=== PATIENT | male | born 1960 | race Caucasian/White ===

== ENCOUNTER 2016-11-20 07:51 | Emergency (ER) | payer SELFPAY ==
[~2016-11-20] VITALS: Ht 177.8 cm; Wt 54.5 kg
[2016-11-20 07:54] VITALS: Ht 177.8 cm; Wt 54.5 kg
[2016-11-20] MEDS ORDERED: ACETAMINOPHEN 325/HYDROC 7.5 15 ML CUP PO ONE (08:00)
[2016-11-20] MEDS ORDERED: ACETAMINOPHEN 325/HYDROC 7.5 15 ML CUP GTB ONE (08:00)
--- NOTE | 2016-11-20 08:21 | ERD ---
ER Documentation Chief Complaint Date/Time DATE: 11/20/16 TIME: 08:19 Chief Complaint BROUGHT IN VIA EMS FROM SNF DUE TO GROUND LEVEL FALL HPI This is a 56-year-old male who is trach, non-vent dependent who is DNR, comfort measures only. The patient presents after falling out of a bed from approximately 1-1/2 feet off the ground. The patient landed on his left side without loss of consciousness. He is complaining of left shoulder pain and head pain. There is no nausea or vomiting. Remainder of history is limited given limited verbal state. This occurred just prior to arrival. ROS All systems reviewed and are negative except as per history of present illness. Medications Home Meds Active Scripts Hydrocodone Bit-Acetaminophen* (Lortab* Liq) 7.5 Mg-325 Mg/15 Ml Solution, 10 ML G-TUBE QID Y for PAIN for 7 Days, ML Prov:AKILAH SYLVESTER MD 11/20/16 Allergies Allergies: Coded Allergies: Penicillins (Verified Allergy, Unknown, 11/20/16) PMhx/Soc History of Surgery: Yes (TRACHEOSTOMY ) Anesthesia Reaction: No Hx Alcohol Use: No (UTD) Hx Substance Use: No (UTD) Hx Tobacco Use: No (UTD) Smoking Status: Unknown if ever smoked FmHx Family History: No diabetes Physical Exam Vitals Vital Signs Date Time Temp Pulse Resp B/P Pulse Ox O2 Delivery O2 Flow Rate FiO2 11/20/16 09:15 96 5.0 28 11/20/16 07:54 98.2 97 18 104/78 94 Physical Exam Airway is intact Bilateral breath sounds Strong distal pulses No obvious deficits General: Well developed, well nourished, no acute distress Head: Normocephalic, atraumatic Eyes: Pupils equally reactive, EOM intact ENT: Moist mucous membranes Neck: Supple, no lymphadenopathy, No midline tenderness, deformities, step-offs to the cervical spine, full active and passive range of motion without midline pain. Respiratory: Lungs clear bilaterally, no distress, no chest wall tenderness, no crepitus, trach in place Cardiovascular: RRR, no murmurs, rubs, or gallops Abdominal: Soft, non-tender, non-distended, no peritoneal signs, pelvis is stable : Deferred MSK: Soft tissue tenderness and ecchymoses are noted to the left shoulder with limited range of motion and contractures that appear to be baseline. No skin breaks, no obvious bony abnormalities. No other extremity injuries are noted, limited movement of all 4 extremities appears to be baseline Neurologic: Alert and follows simple commands, limited movement of all extremities at baseline Skin: No ecchymoses or bruising to the chest or abdomen Psych: Normal mood Results 24 hrs Current Medications Medications (Trade) Dose Ordered Sig/Néstor Route PRN Reason Start Time Stop Time Status Last Admin Dose Admin Acetaminophen/ Hydrocodone Bitart (Lortab Liq) 10 ml ONCE ONCE PO 11/20/16 08:00 11/20/16 08:00 DC Acetaminophen/ Hydrocodone Bitart (Lortab Liq) 10 ml ONCE ONCE GTB 11/20/16 08:00 11/20/16 08:01 DC 11/20/16 08:19 Morphine Sulfate (morphine) 6 mg ONCE ONCE IM 11/20/16 10:00 11/20/16 10:01 DC Procedures/MDM EKG, MONITORS, & DIAGNOSTIC IMAGING: CT brain: IMPRESSION: No acute intracranial abnormalities. Mild disproportionate enlargement of the ventricular system in comparison to the overlying sulci which can be seen in patients with normal pressure or communicating hydrocephalus. X-ray left shoulder: I reviewed and interpreted multiple views of the x-ray Bones: Possible displaced fracture of the clavicle Soft tissue: No evidence of foreign body X-ray left clavicle: I reviewed and interpreted multiple views of the x-ray Bones: Minimally displaced distal clavicle fracture Soft tissue: No evidence of foreign body Splint Application Note: Splint type: Sling Extremity: Left upper extremity Indication: Clavicle fracture The patient was consented at bedside prior to splint application and states understanding of risks, benefits, and alternatives. The patient was neurovascularly intact prior to and status post application of the splint. The patient tolerated the procedure well and there were no complications. MEDICAL DECISION MAKING: The patient presents with a low mechanism mechanical fall complaining of left shoulder pain. The patient is DNR/DNI. CT imaging of the head and left shoulder would be appropriate. No signs or symptoms concerning for C-spine injury, low height. ER COURSE: Patient given pain medication. Diagnostic imaging reveals a closed left clavicle fracture. The patient was placed in a sling as documented above. The patient is chronically contracted left upper extremity. He does not use his extremity significantly. No indication for surgery or inpatient hospitalization. Patient given second dose of pain medication will be discharged back to custodial facility. I kept the patient and/or family informed of laboratory and diagnostic imaging results throughout the emergency room course. DISPOSITION PLAN: We discussed follow up with the patient's primary care doctor within 24 to 48 hours as needed. We also discussed return to the emergency room for worsening symptoms or worsening condition. Outpatient referral: Orthopedic surgery Discharge Medications: Lortab Departure Diagnosis: Primary Impression: Fracture of clavicle, left, closed Condition: Stable AKILAH SYLVESTER MD Nov 20, 2016 08:21
--- NOTE | 2016-11-20 08:45 | RADRPT ---
PROCEDURE: CT Brain without contrast. CLINICAL INDICATION: Pain, headache TECHNIQUE: Routine CT scan of the brain was performed on a high resolution multi detector scanner without intravenous contrast. One or more of the following dose reduction techniques were used: Auto mated exposure control; Adjustment of the mA and/or kV according to patient size; Use of iterative r econstruction technique. CTDI = 43 mGy. DLP = 720 mGy-cm. COMPARISON: No prior relevant examinations are available for comparison. FINDINGS: Hemorrhage: No evidence of intracranial hemorrhage. Acute ischemic changes: No evidence of acute ischemic changes. Mass effect/Midline shift: None. Parenchymal volume: Mild - moderate central parenchymal volume loss is evident. Ventricular system: Mild disproportionate enlargement of the ventricular system in comparison to the overlying sulci which can be seen in patients with normal pressure or communicating hydrocephalus. Chronic changes: Minimal amount of encephalomalacia noted in the right frontal lobe underlying the p rior craniotomy trang hole. Extracranial soft tissues: Unremarkable. Calvarium: No fractures. Small right frontal craniotomy tract noted. Paranasal sinuses: Visualized paranasal sinuses are clear. Mastoid air cells: Visualized mastoid air cells are clear. IMPRESSION: No acute intracranial abnormalities. Mild disproportionate enlargement of the ventricular system in comparison to the overlying sulci whi ch can be seen in patients with normal pressure or communicating hydrocephalus. RPTAT: AADD .Lazaro Gresham MD, MD Date Time Electronically viewed and signed by .Lazaro Gresham MD, on 11/20/2016 08:45 .B/
--- NOTE | 2016-11-20 08:48 | RADRPT ---
PROCEDURE: XR Left Shoulder. CLINICAL INDICATION: Trauma due to a fall. Left shoulder pain. TECHNIQUE: Two views. Frontal and scapular Y-view COMPARISON: No prior study is available for comparison. FINDINGS: There is irregularity of the distal clavicle. The glenohumeral joint is unremarkable with no fractu re or dislocation. The soft tissues are normal. Articular surfaces are intact. There is no lytic or blastic lesion. There is no radiopaque foreign body. IMPRESSION: 1. Irregularity of the distal clavicle. This may indicate a nondisplaced fracture. Correlation wi left clavicle radiographs is advised. 2. Otherwise unremarkable images of the left shoulder. RPTAT: QQ .Franki Wild MD, MD Date Time Electronically viewed and signed by .Franki Wild MD, on 11/20/2016 08:47 .R/
[2016-11-20 09:54] VITALS: BP 107/72; PULSE 80; RESP 18; TEMP 98.2
[2016-11-20] MEDS ORDERED: HYDR15SO8 G-TUBE (09:56)
[2016-11-20] MEDS ORDERED: morphine 10 MG INJ IM ONE (10:00)
--- NOTE | 2016-11-20 10:10 | RADRPT ---
PROCEDURE: XR left clavicle. CLINICAL INDICATION: Fall pain TECHNIQUE: AP and AP lordotic views of the left clavicle were performed. COMPARISON: None. FINDINGS: There is a minimally displaced fracture of the distal clavicle with approximate 2 mm superior displa cement of the distal fragment. Tracheostomy tube. The patient's hand is projected over the left upp er chest. Plate and screws in the upper thoracic spine region. There is a fracture of the left pos terior 3rd rib which appears chronic. Suggestion of old fracture left anterior second rib. IMPRESSION: Minimally displaced fracture of the distal clavicle with approximate 2 mm superior displacement of t he distal fragment. Please see above. RPTAT: HJES .Tom Stinson MD, MD Date Time Electronically viewed and signed by .Tom Stinson MD, on 11/20/2016 10:10 .S/
== END 2016-11-20 11:24 | disposition home or self-care (01) ==
LOC: E/R 07:51
DX: S42.002A Fracture of unspecified part of left clavicle, initial encounter for closed fracture (principal); R40.2142 Coma scale, eyes open, spontaneous, at arrival to emergency department; R51 Headache; R40.2362 Coma scale, best motor response, obeys commands, at arrival to emergency department; W06.XXXA Fall from bed, initial encounter; Y92.9 Unspecified place or not applicable
CPT/HCPCS: 70450; 73000; 73030; J2270; 96372

== ENCOUNTER 2016-11-30 07:38 | Inpatient (IN) | payer MEDICARE ==
[~2016-11-30] VITALS: Ht 167.6 cm; Wt 70.0 kg
[~2016-11-30 07:38] MED LIST: HYDR15SO8 G-TUBE
[2016-11-30] MEDS ORDERED: AZTREONAM 1 GM/NS (PMX) 50 ML IVPB STA (07:41)
[2016-11-30] MEDS ORDERED: SOD CHLORIDE 0.9% 1,000 ML IV STA ×2 (07:42)
[2016-11-30 07:44] VITALS: Ht 167.6 cm; Wt 70.0 kg
[2016-11-30] MEDS ORDERED: ONDANSETRON 4 MG INJ IV STA (07:55)
[2016-11-30] MEDS ORDERED: morphine 4 MG/ML VIAL IV STA ×2 (07:55→10:53)
[2016-11-30] MEDS ORDERED: VANCOMYCIN 1 GM (PMX) 250 ML IVPB ONE (08:00)
[2016-11-30] MEDS ORDERED: DIATR MEGLU/DIATRIZOATE SODIUM 120 ML BTL ONE ×2 (08:27→10:04)
[2016-11-30 08:30] LABS: BASOPHILS % 0.3 % (0.0-2.0); EOSINOPHILS # 1.3 10^3/ul (0.0-0.5); EOSINOPHILS % 9.9 % (0.0-7.0); HEMATOCRIT 27.3 % (42.0-52.0); HEMOGLOBIN 8.7 g/dl (14.0-18.0); LYMPHOCYTES # 1.8 10^3/ul (0.8-2.9); LYMPHOCYTES % 14.1 % (15.0-51.0); MEAN CORPUSCULAR HEMOGLOBIN 29.3 pg (29.0-33.0); MEAN CORPUSCULAR HGB CONC 31.9 g/dl (32.0-37.0); MEAN CORPUSCULAR VOLUME 91.9 fl (82.0-101.0); MEAN PLATELET VOLUME 11.6 fl (7.4-10.4); MONOCYTE # 0.8 10^3/ul (0.3-0.9); MONOCYTES % 6.2 % (0.0-11.0); NEUTROPHILS % 69.2 % (39.0-77.0); PLATELET COUNT 293 10^3/UL (140-415); RED BLOOD COUNT 2.97 10^6/ul (4.70-6.10); RED CELL DISTRIBUTION WIDTH 19.2 % (11.5-14.5)
[2016-11-30 08:36] LABS: ADD UMIC YES; UR AMORPHOUS CRYSTAL FEW /HPF (NONE SEEN); UR ASCORBIC ACID 40 mg/dL (NEGATIVE); UR BACTERIA FEW /HPF (NONE SEEN); UR BILIRUBIN (Dip) NEGATIVE (NEGATIVE); UR BLOOD (Dip) NEGATIVE (NEGATIVE); UR CLARITY CLOUDY (CLEAR); UR COLOR YELLOW (YELLOW); UR GLUCOSE (Dip) NEGATIVE (NEGATIVE); UR KETONES (Dip) NEGATIVE (NEGATIVE); UR LEUKOCYTE ESTERASE (Dip) 3+ Leu/ul (NEGATIVE); UR NITRITE (Dip) NEGATIVE (NEGATIVE); UR RBC 6 /HPF (0-5); UR SPECIFIC GRAVITY (Dip) 1.014 (1.003-1.030); UR TOTAL PROTEIN (Dip) 2+ mg/dl (NEGATIVE); UR UROBILINOGEN (Dip) NEGATIVE (NEGATIVE)
[2016-11-30 08:50] LABS: INR 1.07; PROTIME 13.9 Sec (12.2-14.2); PT RATIO 1.1
[2016-11-30 08:51] LABS: PARTIAL THROMBOPLASTIN TIME 36.8 Sec (25.0-35.0)
[2016-11-30 08:52] LABS: ALANINE AMINOTRANSFERASE 20 IU/L (13-69); ALBUMIN 3.5 g/dl (3.3-4.9); ALBUMIN/GLOBULIN RATIO 0.89; ALKALINE PHOSPHATASE 69 IU/L (42-121); ANION GAP 16 (8-16); ASPARTATE AMINO TRANSFERASE 59 IU/L (15-46); BILIRUBIN,INDIRECT 0.3 mg/dl (0-1.1); BILIRUBIN,TOTAL 0.3 mg/dl (0.2-1.3); BLOOD UREA NITROGEN 14 mg/dl (7-20); CALCIUM 8.6 mg/dl (8.4-10.2); CARBON DIOXIDE 29 mmol/L (21-31); CHLORIDE 105 mmol/L (97-110); CREATININE 0.44 mg/dl (0.61-1.24); GLUCOSE 90 mg/dl (70-220); SODIUM 144 mmol/L (135-144); TOTAL PROTEIN 7.4 g/dl (6.1-8.1)
[2016-11-30] MEDS ORDERED: NA BICARBONATE 8.4% 50 ML SYG IV STA (08:58)
--- NOTE | 2016-11-30 09:03 | RADRPT ---
PROCEDURE: XR Chest. CLINICAL INDICATION: Sepsis TECHNIQUE: A single AP view of the chest was obtained. COMPARISON: None. FINDINGS: A tracheostomy tube is in place. The lungs are hyperinflated with coarsening of the interstitial markings. There are right basilar i nterstitial opacities. There is obscuration of the left diaphragm. No focal airspace opacification , pleural effusion or pneumothorax is seen. The cardiomediastinal silhouette is within normal limit s for size. The osseous structures demonstrate postsurgical changes from inferior cervical fusion. Chondroid matrix calcifications are seen within the right proximal humerus. IMPRESSION: 1. Chronic-appearing interstitial changes of bibasilar atelectasis versus scarring. Pneumonia is ce ntered less likely. 2. Tracheostomy tube in place. 3. 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 RPTAT: HH .Tameka Delgado MD, MD Date Time Electronically viewed and signed by .Tameka Delgado MD, on 11/30/2016 09:03 .G/
--- NOTE | 2016-11-30 09:15 | RADRPT ---
PROCEDURE: XR Abdomen, gastrostomy tube check. CLINICAL INDICATION: Gastrostomy tube placement TECHNIQUE: An AP view of the abdomen was obtained following administration of gastrografin contrast through the gastrostomy tube. COMPARISON: None. FINDINGS: There is a nonobstructive bowel gas pattern. There is filling of the gastric fundus and body. No e xtravasation of contrast is noted. No intraperitoneal free air is identified. Moderate to large vol ume stool is seen throughout the colon. No abnormal soft tissue calcifications are seen. The osseou s structures are unremarkable. The visualized portions of the lung bases are clear. IMPRESSION: 1. Gastrostomy tube appears in good position, within the gastric lumen. 2. Moderate to large volume stool throughout the colon, consistent with constipation. RPTAT: HH .Tameka Delgado MD, Date Time Electronically viewed and signed by .Tameka Delgado MD, on 11/30/2016 09:15 .G/
[2016-11-30 09:28] LABS: TROPONIN-I < 0.012 ng/ml (0.00-0.12)
[2016-11-30] MEDS ORDERED: ACETAMINOPHEN 325 MG TAB PO PRN (09:30)
[2016-11-30] MEDS ORDERED: ONDANSETRON 4 MG INJ IV PRN (09:30)
--- NOTE | 2016-11-30 09:34 | ERA ---
ER Documentation Chief Complaint Date/Time DATE: 11/30/16 TIME: 09:31 Chief Complaint chest pain since last night and gtube replacemnt HPI Patient is a 56-year-old male with trach placement who presents for a G-tube replacement. Please note the history of physical exam is limited secondary to the patient's ability to speak. The patient had a G-tube which pulled out at 6 AM. However he also started complaining of chest pain at 6 AM. He had hypoxia with an oxygen saturation of 85-87% on 5 L. The patient had a 18 Icelandic G-tube in place. Upon review of old medical records this is the patient's second visit to the ER since November 20. ROS All systems reviewed and are negative except as per history of present illness. Medications Home Meds Active Scripts Hydrocodone Bit-Acetaminophen* (Lortab* Liq) 7.5 Mg-325 Mg/15 Ml Solution, 10 ML G-TUBE QID Y for PAIN for 7 Days, ML Prov:AKILAH SYLVESTER MD 11/20/16 Allergies Allergies: Coded Allergies: Penicillins (Verified Allergy, Unknown, 11/20/16) PMhx/Soc History of Surgery: Yes (TRACHEOSTOMY, GASTROSTOMY) Anesthesia Reaction: No Hx Neurological Disorder: Yes (LT ARM CONTRACTURES) Hx Respiratory Disorders: Yes (RESPIRATORY FAILURE, COPD) Hx Cardiac Disorders: No Hx Psychiatric Problems: Yes (ANXIETY, PSYCHOSIS) Hx Miscellaneous Medical Probl: Yes (PRESSURE ULCERS, GERD) Hx Alcohol Use: No (UTD) Hx Substance Use: No (UTD) Hx Tobacco Use: No (UTD) Smoking Status: Unknown if ever smoked FmHx Unable to obtain Physical Exam Vitals Vital Signs Date Time Temp Pulse Resp B/P Pulse Ox O2 Delivery O2 Flow Rate FiO2 11/30/16 08:05 15 11/30/16 07:44 97.5 93 18 127/68 89 Physical Exam Const: Chronically ill Head: Atraumatic Eyes: Normal Conjunctiva ENT: Normal External Ears, Nose and Mouth. Neck: Trach in place Resp: Decreased breath sounds bilaterally Cardio: Regular rate and rhythm, no murmurs Abd: Lu catheter in the place of the G-tube at this time Skin: Redness around the G-tube site Back: No midline or flank tenderness Ext: No cyanosis, or edema Neur: Awake Result Diagram: 11/30/16 0805 11/30/16 0805 Results 24 hrs Laboratory Tests Test 11/30/16 08:05 11/30/16 08:30 White Blood Count 13.010^3/ul Red Blood Count 2.9710^6/ul Hemoglobin 8.7g/dl Hematocrit 27.3% Mean Corpuscular Volume 91.9fl Mean Corpuscular Hemoglobin 29.3pg Mean Corpuscular Hemoglobin Concent 31.9g/dl Red Cell Distribution Width 19.2% Platelet Count 60270^3/UL Mean Platelet Volume 11.6fl Neutrophils % 69.2% Lymphocytes % 14.1% Monocytes % 6.2% Eosinophils % 9.9% Basophils % 0.3% Nucleated Red Blood Cells % 0.0/100WBC Neutrophils # 9.010^3/ul Lymphocytes # 1.810^3/ul Monocytes # 0.810^3/ul Eosinophils # 1.310^3/ul Basophils # 0.010^3/ul Nucleated Red Blood Cells # 0.010^3/ul Prothrombin Time 13.9Sec Prothrombin Time Ratio 1.1 INR International Normalized Ratio 1.07 Activated Partial Thromboplast Time 36.8Sec Urine Color YELLOW Urine Clarity CLOUDY Urine pH 8.0 Urine Specific Calion 1.014 Urine Ketones NEGATIVEmg/dL Urine Nitrite NEGATIVEmg/dL Urine Bilirubin NEGATIVEmg/dL Urine Urobilinogen NEGATIVEmg/dL Urine Leukocyte Esterase 3+Evans/ul Urine Microscopic RBC 6/HPF Urine Microscopic WBC > 182/HPF Urine Amorphous Crystals FEW/HPF Urine Bacteria FEW/HPF Urine Hemoglobin NEGATIVEmg/dL Urine Glucose NEGATIVEmg/dL Urine Total Protein 2+mg/dl Sodium Level 144mmol/L Potassium Level 6.0mmol/L Chloride Level 105mmol/L Carbon Dioxide Level 29mmol/L Anion Gap 16 Blood Urea Nitrogen 14mg/dl Creatinine 0.44mg/dl Glucose Level 90mg/dl Lactic Acid Level 0.8mmol/L Calcium Level 8.6mg/dl Total Bilirubin 0.3mg/dl Direct Bilirubin 0.00mg/dl Indirect Bilirubin 0.3mg/dl Aspartate Amino Transf (AST/SGOT) 59IU/L Alanine Aminotransferase (ALT/SGPT) 20IU/L Alkaline Phosphatase 69IU/L Troponin I < 0.012ng/ml Total Protein 7.4g/dl Albumin 3.5g/dl Globulin 3.90g/dl Albumin/Globulin Ratio 0.89 Bedside Glucose 100mg/dL Current Medications Medications (Trade) Dose Ordered Sig/Néstor Route PRN Reason Start Time Stop Time Status Last Admin Dose Admin Vancomycin HCl 250 ml @ 125 mls/hr ONCE ONCE IVPB 11/30/16 08:00 11/30/16 09:59 11/30/16 09:20 Aztreonam 50 ml @ 100 mls/hr ONCE STAT IVPB 11/30/16 07:41 11/30/16 08:10 DC 11/30/16 08:46 Sodium Chloride 1,000 ml @ 1,000 mls/hr Q1H STAT IV 11/30/16 07:42 11/30/16 08:41 DC 11/30/16 08:46 Sodium Chloride (NS) 1,000 ml @ 1,000 mls/hr Q1H STAT IV 11/30/16 07:42 11/30/16 08:41 DC 11/30/16 08:46 Morphine Sulfate (morphine) 4 mg ONCE STAT IV 11/30/16 07:55 11/30/16 08:00 DC 11/30/16 08:45 Ondansetron HCl (Zofran Inj) 4 mg ONCE STAT IV 11/30/16 07:55 11/30/16 08:00 DC 11/30/16 08:45 Diatrizoate Meglum/ Diatrizoate Sod (Gastrografin 66-10 Solution) 120 ml STK-MED ONCE .ROUTE 11/30/16 08:27 11/30/16 08:28 DC 11/30/16 09:15 Sodium Bicarbonate (Na Bicarb 8.4% Syg) 50 ml ONCE STAT IV 11/30/16 08:58 11/30/16 09:05 DC 11/30/16 09:25 Ondansetron HCl (Zofran Inj) 4 mg ER BRIDGE PRN IV NAUSEA AND/OR VOMITING 11/30/16 09:30 12/01/16 09:29 Acetaminophen (Tylenol Tab) 650 mg ER BRIDGE PRN PO MILD PAIN/FEVER 11/30/16 09:30 12/01/16 09:29 Procedures/MDM G-tube Insertion by oh: Sterile technique, local prep and lubrication, time out performed. Location: Epigastrum Device: 18 Icelandic G-tube Technique: Cornelius pressure with twisting motion. Balloon inflation Results: Gastric contents expressed. Compl: none X-ray Abdomen 1V Interpreted by me: Free Air: None Bowel Gas: Nonspecific Contrast: Intraluminal EKG read by me: Rate/Rhythm: Regular rate and rhythm at a rate of 79 Intervals: Normal Impression: No evidence of ischemia or arrhythmia Chest x-ray shows no obvious pneumonia per radiology. Admit MDM: Patient's infectious symptoms have not stabilized and the patient is at risk of rapid decompensation. The patient will be admitted for careful hydration, antibiotic therapy, and infectious source control. Severe Sepsis criteria: Infectious source: Cystitis End organ damage indicated by: Hypoxia Sepsis Management: Time of recognition of sepsis: Upon arrival Within 3 hours of recognition: Blood cultures x 2 before broad-spectrum antibiotics: Yes 30 ml/kg NS bolus Completed Initial lactate normal Repeat lactate pending Time of recognition of septic shock: No septic shock Septic Shock Assessment: Any lactic acid > 4.0 No Persistent hypotension (SBP < 90 or 40 mmHg drop, MAP < 65) despite 30 mL/kg IV fluid bolus No Volume Re-assessment for Septic Shock (post 30 ml/kg bolus): No septic shock at this time Persistent Hypotension Treatment: Comfort care No Central line Not Required Vasopressor started Not required I considered further perfusion assessment with CVP measurement, SCVO2, bedside ultrasound volume assessment, passive leg raise, trial of further fluid bolus. And proceeded with 30 ml/kg fluid bolus of NSS, broad spectrum antibiotics, and admission. I also replaced the G-tube at the bedside without difficulty Accepting Care Team Current data and ongoing care discussed. Admitting Physician: Dr. Shelton from the panel team Time Clock Mechanic(s): None Outstanding Data: Culture results and repeat lactic acid Critical Care: Critical care time 35 minutes excluding all billable procedures Emergent fluid management while maintaining close respiratory support. Provision of immediate and broad-spectrum antibiotic therapy. Simultaneous assessment for possible sources in order to direct targeted therapy. Consideration for invasive and chemical support to prevent cardiopulmonary collapse. Departure Diagnosis: Primary Impression: Severe sepsis Additional Impressions: PEG tube malfunction Hypoxia Chest pain Qualified Code: R07.9 - Chest pain, unspecified type Cystitis Condition: Serious VIVIAN GARY MD Nov 30, 2016 09:34
[2016-11-30] MEDS ORDERED: ACET-2047 GTB (09:40)
[2016-11-30] MEDS ORDERED: ASCO500S2 GTB (09:40)
[2016-11-30] MEDS ORDERED: BUDE0.5A INHALATION (09:42)
[2016-11-30] MEDS ORDERED: CALC500T91 GTB (09:43)
[2016-11-30] MEDS ORDERED: CHLO473M4 MM (09:43)
[2016-11-30] MEDS ORDERED: BISA10SU75 PR (09:49)
[2016-11-30] MEDS ORDERED: [UNRECOGNIZED DRUG - CODE] IJ (09:49)
[2016-11-30] MEDS ORDERED: IPRA3AMP INHALATION (09:51)
[2016-11-30] MEDS ORDERED: HAL2 IM (09:52)
[2016-11-30] MEDS ORDERED: [UNRECOGNIZED DRUG - OTHER] TOP (09:53)
[2016-11-30] MEDS ORDERED: LORA1TAB GTB (09:55)
[2016-11-30] MEDS ORDERED: METO10TA92 GTB (09:56)
[2016-11-30] MEDS ORDERED: METO25TA4 GTB (09:57)
[2016-11-30] MEDS ORDERED: POLY17PO6 GTB (09:58)
[2016-11-30] MEDS ORDERED: MORP10DI10 IV (10:00)
[2016-11-30] MEDS ORDERED: MULTI GTB (10:00)
[2016-11-30] MEDS ORDERED: PROT946L GTB (10:01)
[2016-11-30] MEDS ORDERED: PANT40TA4 GTB (10:01)
[2016-11-30] MEDS ORDERED: QUET400T11 GTB (10:02)
[2016-11-30] MEDS ORDERED: VALP250C3 GTB (10:02)
[2016-11-30 10:17] VITALS: TEMP 97.5
--- NOTE | 2016-11-30 10:37 | RADRPT ---
PROCEDURE: XR Abdomen CLINICAL INDICATION: Repeat G tube placement TECHNIQUE: An AP supine radiograph of the abdomen was submitted. COMPARISON: The study done earlier on the same date FINDINGS: A G tube is again evident with the tip lying within the distal body of the stomach. Contrast is see n to have been introduced into the stomach and no extravasation is evident. Substantial stool is seen to the colon. Surgical charles project through the mid pelvis, central abdomen, upper abdomen right upper quadrant . No organomegaly or discrete mass is identified. No pathological calcification is identified. The osseous elements appear unremarkable. Subsegmental atelectasis projects to the heart with in the left lower lobe, unchanged. IMPRESSION: 1. The NG tube tip lies within the distal body of the stomach. No contrast extravasation is eviden t. 2. Previous abdominal surgery. 3. Extensive stool seen throughout the colon without evidence of bowel obstruction. 4. Subsegmental atelectasis is again seen within the left lower lobe. Physician Alex Date Time Electronically viewed and signed by Physician Alex on 11/30/2016 10:37 /
[2016-11-30 12:58] VITALS: PULSE 73
[2016-11-30] MEDS ORDERED: morphine 2 MG INJ IV PRN (14:00)
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
[2016-11-30] MEDS ORDERED: HALOPERIDOL 1 MG TAB PEG PRN (14:30)
[2016-11-30] MEDS ORDERED: BISACODYL 10 MG SUPP PR PRN (14:30)
[2016-11-30] MEDS ORDERED: METOCLOPRAMIDE 10 MG TAB GTB PRN (14:30)
[2016-11-30] MEDS ORDERED: ACETAMINOPHEN 650MG/20.3ML CUP GTB PRN (14:30)
[2016-11-30] MEDS ORDERED: LORAZEPAM 1 MG TAB GTB PRN (14:30)
[2016-11-30] MEDS ORDERED: POLYETHYLENE GLYCOL 17 GM PACKET PO ONE (14:30)
[2016-11-30 16:19] VITALS: BP 152/82; RESP 18
[2016-11-30 16:36] VITALS: PULSE 75
[2016-11-30] MEDS ORDERED: BUDESONIDE (NEB) 0.5MG/2ML AMP INH SCH (20:00)
[2016-11-30] MEDS ORDERED: COLISTIMETHATE (25 MG/ML INHAL SYG) INH SCH (20:00)
[2016-11-30] MEDS ORDERED: VALPROIC ACID 250 MG CAP GTB SCH (21:00)
[2016-11-30] MEDS ORDERED: QUETIAPINE 100 MG TAB GTB SCH (21:00)
[2016-11-30] MEDS ORDERED: METOPROLOL 25 MG TAB GTB SCH (22:00)
[2016-12-01] MEDS ORDERED: ASCORBIC ACID 500 MG TAB GTB SCH (09:00)
[2016-12-01] MEDS ORDERED: POLYETHYLENE GLYCOL 17 GM PACKET GTB SCH (09:00)
--- NOTE | 2016-12-01 13:16 | QN ---
Documentation Comment Called by micro lab pt with 1/2 + blood cultures with GPCs in pairs/clusters. I notified Dr Shelton, physician who oversaw his care. Benita Hendricks MD Hospitalist BENITA HENDRICKS MD Dec 01, 2016 13:16
== END 2016-11-30 17:05 | DRG 313 ==
LOC: E/R 07:38 → MS4 09:21
PROVIDERS: ADMIT Internal Medicine; ATTEND Internal Medicine
PROC: 0D20XUZ Change Feeding Device in Upper Intestinal Tract, External Approach (ICD-10-PCS; principal; 2016-11-30)
DX: R07.9 Chest pain, unspecified (principal); G82.20 Paraplegia, unspecified; Z93.0 Tracheostomy status; Z43.1 Encounter for attention to gastrostomy; N30.90 Cystitis, unspecified without hematuria; Z66 Do not resuscitate; F20.9 Schizophrenia, unspecified
CPT/HCPCS: 36415; 71010; 74000; 80053; 81001; 82962; 83605; 84484; 85025; 85610; 85730; 87040; 87045; 87086; 93005; 96361; 96365; 96375; 96376; J2270; J2405; J3370; J7030

== ENCOUNTER 2016-12-01 13:25 | Observation (INO) | payer MEDICARE ==
[~2016-12-01] VITALS: Ht 160 cm; Wt 42.2 kg
[~2016-12-01 13:25] MED LIST changes: +ACET-2047 GTB; +ASCO500S2 GTB; +BISA10SU75 PR; +BUDE0.5A INHALATION; +CALC500T91 GTB; +CHLO473M4 MM; +HAL2 IM; -HYDR15SO8 G-TUBE; +IPRA3AMP INHALATION; +LORA1TAB GTB; +METO10TA92 GTB; +METO25TA4 GTB; +MORP10DI10 IV; +MULTI GTB; +PANT40TA4 GTB; +POLY17PO6 GTB; +PROT946L GTB; +QUET400T11 GTB; +VALP250C3 GTB; +[UNRECOGNIZED DRUG - CODE] IJ; +[UNRECOGNIZED DRUG - OTHER] TOP
--- NOTE | 2016-12-01 14:11 | ERD ---
ER Documentation Chief Complaint Date/Time DATE: 12/01/16 TIME: 14:09 Chief Complaint leaking gtube HPI 56-year-old man brought in by EMS from [place] [facility] for leaking around his gastrostomy tube. Patient complains of pain and is requesting opioid analgesics. Patient was seen and evaluated a few days ago at [facility] emergency department and gastrostomy tube was replaced to a 20 Mongolian tube, patient was admitted for chest pain, ACS was ruled out and patient was discharged with appropriate follow-up. Patient returns today with discharge from the gastrostomy site. He has no fevers or chills, no vomiting or diarrhea, no complaints of chest pain or shortness of breath. ROS All systems reviewed and are negative except as per history of present illness. Medications Home Meds Reported Medications Valproic Acid* (Valproic Acid*) 250 Mg Capsule, 500 MG GTB BID, CAP 11/30/16 Quetiapine Fumarate* (Quetiapine Fumarate*) 400 Mg Tablet, 400 MG GTB Q12, TAB 11/30/16 Protein Supplement (Promod) 946 Ml Liquid, 30 ML GTB BID 11/30/16 Pantoprazole* (Pantoprazole*) 40 Mg Tablet.dr, 40 MG GTB BID, TAB 11/30/16 Multivitamins* (Theragran*) 1 Tab Tab, 1 TAB GTB DAILY, TAB 11/30/16 Morphine Sulfate* (Morphine* Liq) 10 Mg/0.5 Ml Disp.syrin, 2 MG IV Q4 Y for PAIN , ML 11/30/16 Polyethylene Glycol* (Miralax*) 17 Gm Powd.pack, 17 GM GTB DAILY, #30 PACKET 11/30/16 Metoprolol Tartrate* (Lopressor*) 25 Mg Tablet, 12.5 MG GTB Q8, #60 TAB HOLD IF SBP<110 OR HR<60 11/30/16 Metoclopramide* (Reglan*) 10 Mg Tablet, 10 MG GTB Q6 Y for NAUSEA AND/OR VOMITING, TAB 11/30/16 Lorazepam* (Lorazepam*) 1 Mg Tablet, 1 MG GTB Q6 Y for ANXIETY, #30 TAB 11/30/16 Hydrogen Peroxide* (Hydrogen Peroxide* (237ml)) 1 Applic Soln, 1 APPLIC TOP Q12 , BOTTLE 11/30/16 Haloperidol* (Haldol*) 2 Mg Tab, 2 MG IM Q6 Y for AGITATION, TAB 11/30/16 Ipratropium-Albuterol (Ipratropium-Albuterol) 0.5-3 Mg/3 Ml Ampul.neb, 3 ML INHALATION Q6, #30 VIAL 11/30/16 Bisacodyl* (Bisacodyl*) 10 Mg Supp, 10 MG VA Q24H Y for CONSTIPATION, SUPP 11/30/16 Colistimethate Sodium (Coly-Mycin M) 150 Mg Soln, 75 MG IJ Q12 11/30/16 Chlorhexidine Gluconate (Peridex) 473 Ml Mouthwash, 15 ML MM Q12, BOTTLE 11/30/16 Calcium Carbonate ([id number]) 500 Mg Tablet, 500 MG GTB Q8, TAB 11/30/16 Budesonide* (Budesonide*) 0.5 Mg/2 Ml Ampul.neb, 0.5 MG INHALATION BID, AMP 11/30/16 Ascorbic Acid* (Ascorbic Acid*) 500 Mg/5 Ml Syrup, 500 MG GTB DAILY, #150 ML 11/30/16 Acetaminophen* (Acetaminophen*) 650 Mg Tablet, 650 MG GTB Q6H Y for FEVER GREATER THAN 100.6, #30 TAB 11/30/16 Discontinued Scripts Hydrocodone Bit-Acetaminophen* (Lortab* Liq) 7.5 Mg-325 Mg/15 Ml Solution, 10 ML G-TUBE QID Y for PAIN for 7 Days, ML Prov:AKILAH SYLVESTER MD 11/20/16 Allergies Allergies: Coded Allergies: Penicillins (Verified Allergy, Unknown, 12/01/16) PMhx/Soc Paraplegic, tracheostomy tube, psychosis, dysphagia with gastrostomy tube, hypertension, chronic pain syndrome, opioid dependence, gastritis History of Surgery: Yes (TRACHEOSTOMY, GASTROSTOMY) Anesthesia Reaction: No Hx Neurological Disorder: Yes (LT ARM CONTRACTURES) Hx Respiratory Disorders: Yes (RESPIRATORY FAILURE, COPD) Hx Cardiac Disorders: No Hx Psychiatric Problems: Yes (ANXIETY, PSYCHOSIS) Hx Miscellaneous Medical Probl: Yes (PRESSURE ULCERS, GERD) Hx Alcohol Use: No (UTD) Hx Substance Use: No (UTD) Hx Tobacco Use: No (UTD) Sm[facility] Status: [facility] Family History: No diabetes Physical Exam Vitals Vital Signs Date Time Temp Pulse Resp B/P Pulse Ox O2 Delivery O2 Flow Rate FiO2 12/01/16 13:32 97.7 66 20 114/68 96 Physical Exam GENERAL: Well-developed, well-nourished, moderate discomfort, dehydrated HEENT: Dry mucous membranes, pink conjunctiva, no cervical spine tenderness or step-off deformities, no goiter, no jaundice or icterus, extraocular movements intact without pain. No submandibular induration, and no pharyngeal erythema NEURO: Alert and oriented 3, cranial nerves II through XII intact bilaterally, pupils equal round reactive to light, no focal deficits or facial asymmetry, sensation intact distally Strength 5/5 in upper and lower extremities bilaterally CARDIAC: Regular rate and rhythm, no murmurs rubs or gallops LUNGS: Clear bilaterally no wheezing crackles or stridor ABDOMEN: Soft nontender, no guarding, no rigidity, no rebound, no psoas sign no obturator sign. Normoactive bowel sounds SKIN: Warm and dry to touch, no abrasions, contusions, or hematomas, no lacerations, no ecchymosis, no target lesions, and without ulcers EXTREMITIES: No clubbing cyanosis or edema, calves are bilaterally symmetrical, no Homans sign, no popliteal cord sign. Distal pulses equal and bilateral PSYCH: Normal affect without agitation or irritability Result Diagram: 12/01/16 1425 12/01/16 1425 Results 24 hrs Laboratory Tests Test 12/01/16 14:25 White Blood Count 8.610^3/ul Red Blood Count 2.8010^6/ul Hemoglobin 8.5g/dl Hematocrit 26.3% Mean Corpuscular Volume 93.9fl Mean Corpuscular Hemoglobin 30.4pg Mean Corpuscular Hemoglobin Concent 32.3g/dl Red Cell Distribution Width 18.8% Platelet Count 54449^3/UL Mean Platelet Volume 10.8fl Neutrophils % % Segmented Neutrophils % (Manual) 52% Lymphocytes % % Lymphocytes % (Manual) 21% Monocytes % % Monocytes % (Manual) 7% Eosinophils % % Eosinophils % (Manual) 20.0% Basophils % % Nucleated Red Blood Cells % 0.0/100WBC Neutrophils # 4.510^3/ul Absolute Lymphocytes (Manual) Pending Lymphocytes # 1.810^3/ul Monocytes # 0.610^3/ul Absolute Monocytes (Manual) Pending Eosinophils # 1.710^3/ul Basophils # 10^3/ul Nucleated Red Blood Cells # 10^3/ul Macrocytosis OCCASIONAL Prothrombin Time 14.8Sec Prothrombin Time Ratio 1.2 INR International Normalized Ratio 1.16 Sodium Level 146mmol/L Potassium Level 3.2mmol/L Chloride Level 103mmol/L Carbon Dioxide Level 30mmol/L Anion Gap 16 Blood Urea Nitrogen 14mg/dl Creatinine 0.41mg/dl Glucose Level 72mg/dl Calcium Level 8.7mg/dl Total Bilirubin 0.0mg/dl Direct Bilirubin 0.00mg/dl Indirect Bilirubin 0.0mg/dl Aspartate Amino Transf (AST/SGOT) 16IU/L Alanine Aminotransferase (ALT/SGPT) 23IU/L Alkaline Phosphatase 65IU/L Total Protein 6.4g/dl Albumin 3.0g/dl Globulin 3.40g/dl Albumin/Globulin Ratio 0.88 Lipase 15U/L Current Medications Medications (Trade) Dose Ordered Sig/Néstor Route PRN Reason Start Time Stop Time Status Last Admin Dose Admin Sodium Chloride (NS) 500 ml @ 500 mls/hr Q1H STAT IV 12/01/16 14:16 12/01/16 15:15 DC 12/01/16 14:54 Diatrizoate Meglum/ Diatrizoate Sod 120 ml 120 ml STK-MED ONCE .ROUTE 12/01/16 14:51 12/01/16 14:52 DC 12/01/16 15:07 Piperacillin Sod/ Tazobactam Sod 100 ml @ 200 mls/hr ONCE STAT IVPB 12/01/16 15:22 12/01/16 15:51 DC 12/01/16 15:35 Vancomycin HCl (Vancocin) 250 ml @ 125 mls/hr ONCE IVPB 12/01/16 15:30 12/01/16 17:29 Hydromorphone HCl (Dilaudid) 1 mg ONCE STAT IV 12/01/16 15:22 12/01/16 15:25 DC 12/01/16 15:35 Ondansetron HCl (Zofran Inj) 4 mg ONCE STAT IV 12/01/16 15:22 12/01/16 15:25 DC 12/01/16 15:35 Procedures/MDM IV line was established patient was placed on cardiac care nurse rhythm strip revealed a sinus rhythm at about 70 bpm with upright P and T waves. Patient was afebrile. There is significant discharge from the gastrostomy site appears to be gastric contents, purulence less likely, mild skin erythema at the gastrostomy site. GI consultation obtained with Dr. Cuevas, he recommended repositioning the gastrostomy tube, which I did at the bedside. I made sure the balloon was properly inflated and positioned, despite my attempt discharge around the tube continues. One view abdominal x-ray with Gastrografin through the gastrostomy tube was obtained, there was no dye leak, no concerning air-fluid levels noted. X-ray read by me. I called central supply to request the larger gastrostomy tube, I requested either a 22 or 24 Mongolian tube, they stated 20 Mongolian was the largest one they had. CBC reveals anemia with a hemoglobin of 8.5, electrolytes revealed mild hypokalemia 3.2, liver function tests normal, troponin negative. Dr. Cuevas felt some of the discharge may be related to infection and recommended admission and agreed to follow-up with the patient. Blood cultures were ordered, one round of IV antibiotics were administered from the ED, for further antibiotics if indicated will be deferred to admitting team. Patient received Zosyn 3.375 g IV and vancomycin 1 g IV 1. I also administered hydromorphone 1 mg IV and Zofran 4 mg IV. Departure Diagnosis: Primary Impression: Gastrostomy tube skin breakdown Additional Impressions: Dislodged gastrostomy tube Attention to gastrostomy tube Hypokalemia Anemia Anemia type: unspecified type Qualified Code: D64.9 - Anemia, unspecified type Chronic pain Chronic pain type: chronic pain syndrome Qualified Code: G89.4 - Chronic pain syndrome Condition: LISSETTE May MD Dec 01, 2016 14:11
[2016-12-01] MEDS ORDERED: SOD CHLORIDE 0.9% 500 ML IV STA (14:16)
[2016-12-01] MEDS ORDERED: DIATR MEGLU/DIATRIZOATE SODIUM 120 ML BTL ONE (14:51)
[2016-12-01 14:54] LABS: ABNORMAL IP MESSAGE 1; HEMATOCRIT 26.3 % (42.0-52.0); HEMOGLOBIN 8.5 g/dl (14.0-18.0); MEAN CORPUSCULAR HEMOGLOBIN 30.4 pg (29.0-33.0); MEAN CORPUSCULAR HGB CONC 32.3 g/dl (32.0-37.0); MEAN CORPUSCULAR VOLUME 93.9 fl (82.0-101.0); MEAN PLATELET VOLUME 10.8 fl (7.4-10.4); PLATELET COUNT 316 10^3/UL (140-415); POSITIVE DIFF @See below; RED CELL DISTRIBUTION WIDTH 18.8 % (11.5-14.5); WHITE BLOOD COUNT 8.6 10^3/ul (4.8-10.8)
[2016-12-01 15:01] LABS: ALBUMIN/GLOBULIN RATIO 0.88; CALCIUM 8.7 mg/dl (8.4-10.2); CREATININE 0.41 mg/dl (0.61-1.24); POTASSIUM 3.2 mmol/L (3.5-5.1); TOTAL PROTEIN 6.4 g/dl (6.1-8.1)
[2016-12-01 15:04] LABS: INR 1.16; PROTIME 14.8 Sec (12.2-14.2); PT RATIO 1.2
[2016-12-01] MEDS ORDERED: ONDANSETRON 4 MG INJ IV STA (15:22)
[2016-12-01] MEDS ORDERED: HYDROmorphONE 1 MG/ML SYG IV STA (15:22)
[2016-12-01] MEDS ORDERED: PIPER-TAZO 3.375 GM IV (PMX) 100 ML IVPB STA (15:22)
[2016-12-01] MEDS ORDERED: VANCOMYCIN 1 GM (PMX) 250 ML IVPB SCH (15:30)
--- NOTE | 2016-12-01 15:36 | RADRPT ---
PROCEDURE: XR Abdomen. G tube placement CLINICAL INDICATION: Gastrostomy tube placement. . TECHNIQUE: Single frontal view of the abdomen following injection of 50 cc of gastrographin throug h the gastrostomy tube is available for review. Fluoroscopic time: 0 Number of images/sequences: 1 COMPARISON: 11/30/2016 FINDINGS: There is residual contrast in the colon from prior study.. There are postsurgical clips in the right abdomen and pelvis. There is no evidence of obstruction. There are no abnormal calcifications over lying the urinary tracts. The osseous structures are unremarkable. There is a percutaneous gastrosto my tube in place with tip in the lumen of the stomach. There is no evidence of injected contrast ex travasation or leakage. IMPRESSION: 1. Percutaneous gastrostomy tube in place with tip in the stomach and no evidence of contrast extra vasation or leakage.. RPTAT: GG .Tom Núñez MD, Date Time Electronically viewed and signed by .Tom Núñez MD, on 12/01/2016 15:35 .L/
[2016-12-01 15:47] LABS: EOSINOPHILS # 1.7 10^3/ul (0.0-0.5); LYMPHOCYTES # 1.8 10^3/ul (0.8-2.9); MONOCYTE # 0.6 10^3/ul (0.3-0.9); MONOCYTES % (M) 7 % (0-11); NEUTROPHIL # 4.5 10^3/ul (1.6-7.5)
[2016-12-01 15:54] VITALS: TEMP 97.7
[2016-12-01 17:10] VITALS: BP 133/72; PULSE 70; RESP 22
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
[2016-12-01] MEDS ORDERED: ARTIFICIAL TEARS 15 ML OPH BOTH EYES PRN (18:00)
[2016-12-01] MEDS ORDERED: morphine LIQ (10 MG/5 ML) CUP PEG PRN (18:00)
[2016-12-01] MEDS ORDERED: BISACODYL 10 MG SUPP PR PRN (18:00)
[2016-12-01] MEDS ORDERED: ACETAMINOPHEN 650MG/20.3ML CUP GTB PRN (18:00)
[2016-12-01] MEDS ORDERED: LORAZEPAM 1 MG TAB GTB PRN (18:00)
[2016-12-01] MEDS: PANTOPRAZOLE (EC) 40 MG TAB PO SCH (18:00)
[2016-12-01] MEDS ORDERED: DIMETHICONE STICK TOP PRN (18:00)
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
[2016-12-01 18:58] VITALS: Ht 160 cm; Wt 42.2 kg
[2016-12-01] MEDS ORDERED: MINERAL OIL 133 ML ENEMA PR ONE (19:00)
[2016-12-01] MEDS: morphine 2 MG INJ IV PRN ×3 (19:05→23:11)
[2016-12-01 20:17] VITALS: BP 128/66; RESP 20
[2016-12-01] MEDS: QUETIAPINE 100 MG TAB GTB SCH (21:00)
[2016-12-01] MEDS: SENNA TAB PO SCH (21:00)
[2016-12-02] VITALS (9 sets, daily range): BP systolic 125–140; BP diastolic 63–98; PULSE 85–90; RESP 16–26
[2016-12-02] MEDS: morphine 2 MG INJ IV PRN ×9 (02:54→22:35)
[2016-12-02] MEDS: PANTOPRAZOLE (EC) 40 MG TAB PO SCH (06:00)
[2016-12-02] MEDS: POLYETHYLENE GLYCOL 17 GM PACKET GTB SCH (09:00)
[2016-12-02] MEDS: QUETIAPINE 100 MG TAB GTB SCH ×2 (09:00→20:34)
[2016-12-02] MEDS ORDERED: MINERAL OIL 133 ML ENEMA PR ONE (09:00)
[2016-12-02] MEDS: SENNA TAB PO SCH (09:00)
--- NOTE | 2016-12-02 11:27 | PDOCDIS ---
Discharge Instructions CONDITION Patient Condition: Good LAURIE WILL MD Dec 02, 2016 11:27
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
[2016-12-02 14:38] LABS: D-DIMER 644.42 ng/ml (<460)
[2016-12-02] MEDS: LANSOPRAZOLE 30 MG CAP GTB SCH (17:31)
[2016-12-02] MEDS: SENNA TAB GTB SCH (20:34)
--- NOTE | 2016-12-02 23:23 | EN ---
Date/Time of Note Date/Time of Note DATE: 12/02/16 TIME: 23:14 Event Note Medicine Medicine Event Note INSTRUMENT ADJUSTER note approximately at 19:50 INSTRUMENT ADJUSTER was called as patient was found to be desating to 83%. He had managed to pull his Trache out. RT was called and trache was carefully inserted back. Patient was resumed on supplemental 02 and his oxygenation was 94%. Placement of of trache was confirmed by RT and suctioning was adequate. Patient was stable and in no respiratory distress. Vitals: Initial 02 when trache removed: 83% , pulse 110, rr 36 02 after trache reinsertion: 94% on supplmental 02, bp 139/75, rr 20, pulse 91 Constitutional: trache secured and patient in no distress HEENT: trache in place Heart: regular rate and rhythm lungs: clear to auscultation bilaterally, trache in place, good aeration bilaterally on auscultation neuro: awake and alert, at baseline mentation as per nurse. Assessment/plan: #1 respiratory distress - trache was abruptly removed by patient. Reinserted carefully by RT and secured in place. Good air movement, adequate suctioning. Good air movement bilaterally on auscultation of the lungs. Patient no longer in respiratory distress once trache reinserted. Patient stable. Primary team aware. Soft mittens ordered. Chest x-ray. Great than 30 minute of critical care time was spend on the care and management of this patient. KALPESH AMARO Dec 02, 2016 23:23
[2016-12-03] VITALS (13 sets, daily range): BP systolic 105–134; BP diastolic 62–89; PULSE 76–87; RESP 18–24
[2016-12-03] MEDS ORDERED: SOD CHLORIDE 0.9% 1,000 ML IV SCH
[2016-12-03] MEDS: LORAZEPAM 2 MG INJ IV PRN ×2 (00:09→17:37)
[2016-12-03] MEDS: LANSOPRAZOLE 30 MG CAP GTB SCH ×2 (06:00→17:37)
[2016-12-03] MEDS: QUETIAPINE 100 MG TAB GTB SCH (08:29)
[2016-12-03] MEDS: POLYETHYLENE GLYCOL 17 GM PACKET GTB SCH (08:29)
[2016-12-03] MEDS: SENNA TAB GTB SCH (08:29)
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
--- NOTE | 2016-12-03 12:18 | RADRPT ---
PROCEDURE: XR Chest. CLINICAL INDICATION: Tracheostomy TECHNIQUE: PA and Lateral views of the chest were obtained. COMPARISON: Chest x-ray 11/30/2016 FINDINGS: The patient is rotated rightward, limiting evaluation. Tracheostomy tube remains in place. Lower cervical spine fusion hardware is again partially imaged. The cardiomediastinal silhouette is within normal limits. The lungs remain hyperinflated. Right basilar interstitial opacities persist, unchanged. No pneumothorax or focal consolidation is identified. Mild blunting of the right costophrenic angle may be on the basis of bibasilar atelectasis and / or trace right pleural effusion. There is no evidence of pulmonary vascular congestion. Chondroid images calcifications are partially imaged within the right proximal humerus. Residual enteric contrast material is seen at the hepatic flexure. Surgical clips are again seen pro jecting over the upper abdomen. IMPRESSION: 1. Right basilar interstitial opacities, likely representing atelectasis and / or scarring, unchange d. No new focal opacity. 2. Tracheostomy tube remains in place. RPTAT: QQ Physician Zachary Date Time Electronically viewed and signed by Physician Zachary on 12/03/2016 12:18 REYMUNDO/
[2016-12-03] MEDS ORDERED: IODIXANOL LOCM 100 ML BTL ONE (14:29)
[2016-12-03] MEDS ORDERED: SOD CHLORIDE 0.9% 100 ML ONE (14:29)
--- NOTE | 2016-12-03 15:28 | RADRPT ---
PROCEDURE: CTA Chest CLINICAL INDICATION: Chest pain, elevated D-dimer TECHNIQUE: CTA of the chest was performed following the uncomplicated IV administration of 90 cc o f Visipaque 320. Coronal and sagittal images were reconstructed from the axial data set. 3-D volum etric rendered post processing was performed as well. One or more of the following dose reduction t echniques were used: automated exposure control, adjustment of the mA and/or kV according to patient size, use of iterative reconstruction technique. CTDI = 5.67 mGy. DLP = 244.52 mGy-cm. COMPARISON: Chest x-ray, 12/03/2016 FINDINGS: No filling defect is present to suggest pulmonary embolism. There is no evidence for pulmonary abi rial hypertension. Bilateral lower lobe pulmonary consolidation is noted, possibly atelectasis or pneumonia. Retained secretions are present within bilateral lower lobe bronchi. There are small bilateral pleural effus ions. Mild pulmonary emphysema is noted. Patchy tree in bud opacity is seen in the right upper lob e, compatible with infectious/inflammatory bronchiolitis. No pneumothorax is seen. Tracheostomy tu be tip is in the trachea. The heart size is normal without pericardial effusion. There is no thoracic aortic aneurysm or diss ection. There is nonspecific prominence of mediastinal and hilar lymph nodes, likely reactive. No axillary or supraclavicular lymphadenopathy is identified. Gastrostomy tube tip is within the stomach. The osseous structures are remarkable for degenerative spondylosis of the spine. No osteolytic or osteoblastic lesion is seen. The patient is status post l ower cervical spinal fusion. IMPRESSION: 1. No pulmonary embolism is identified. 2. Dense consolidation is present within the bilateral lower lobes, possibly atelectasis or pneumon ia. Retained secretions are present within bilateral lower lobe bronchi. There are small bilateral pleural effusions. 3. Patchy tree in bud opacity is noted in the right upper lobe, compatible with infectious/inflamma tory bronchiolitis. 4. There is mild pulmonary emphysema. 5. Tracheostomy tube is in place. RPTAT: EE .Yehuda Espinoza MD, Date Time Electronically viewed and signed by .Yehuda Espinoza MD, on 12/03/2016 15:28 .R/
--- NOTE | 2016-12-04 11:18 | RADRPT ---
Vent Rate: 86 bpm RR Interval: 0 msec SC Interval: 130 msec QRS Duration: 70 msec QT Interval: 338 msec QTC Interval: 404 msec P-R-T [place]: 81 - 63 - 74 degrees Normal sinus rhythm Nonspecific ST and T wave abnormality Abnormal ECG Electronically Signed By: Arden Feng [id number]
== END 2016-12-03 18:52 ==
LOC: E/R 13:25 → PP2 15:30 → INTOOBSV 15:30 → UNDODISIN 12-02 19:55
PROVIDERS: ADMIT Internal Medicine; ATTEND Internal Medicine
DX: K94.29 Other complications of gastrostomy (principal); K59.00 Constipation, unspecified; Z93.0 Tracheostomy status; E87.6 Hypokalemia; D64.9 Anemia, unspecified; G89.4 Chronic pain syndrome; F20.9 Schizophrenia, unspecified; G82.20 Paraplegia, unspecified; Z66 Do not resuscitate; Z51.5 Encounter for palliative care; R06.00 Dyspnea, unspecified; L89.152 Pressure ulcer of sacral region, stage 2; L89.313 Pressure ulcer of right buttock, stage 3
CPT/HCPCS: 36415; 71010; 71275; 74000; 80053; 83690; 84484; 85025; 85378; 85610; 87040; 93005; 96374; 96375; 99285; G0378; J1170; J2060; J2270; J2405; J2543; J3370; J7030; J7040; Q9967; 99217